=== PATIENT | female | born 1960 | race Caucasian/White ===

== ENCOUNTER 2025-07-04 12:51 | Outpatient (CLI) | payer OTHER ==
[~2025-07-04 12:51] MED LIST: Iopamidol 370 76% 100 ML VIAL ONE
[2025-07-04 14:56] LABS: Estimated GFR - POC 63.0
== END 2025-07-04 12:52 | disposition home or self-care (01) ==
LOC: CSHCT 12:51
PROVIDERS: ATTEND Radiology Radiation Oncology
DX: C34.02 Malignant neoplasm of left main bronchus (principal); C34.2 Malignant neoplasm of middle lobe, bronchus or lung; Z86.73 Personal history of transient ischemic attack (TIA), and cerebral infarction without residual deficits; Z86.79 Personal history of other diseases of the circulatory system; M19.09 Primary osteoarthritis, other specified site; J98.4 Other disorders of lung
CPT/HCPCS: 36415; 70470; 82565; 94060; 94664; 94726; 94729; 94760; Q9967

== ENCOUNTER 2025-07-17 10:42 | Outpatient (CLI) | payer OTHER ==
[2025-07-17 11:30] LABS: Hematocrit 37.0 % (34.9-44.5); Hemoglobin 11.9 g/dL (12.0-15.5); Mean Corpuscular Hemoglobin 29.4 pg (27.0-33.0); Mean Corpuscular Volume 91.4 fL (81.6-98.3); Platelet Count 361 10x3/uL (150-450); Red Blood Cell (RBC) Count 4.05 10x6/uL (3.90-5.03); White Blood Cell (WBC) Count 9.06 10x3/uL (3.5-10.5)
[2025-07-17 12:00] LABS: Anion Gap 15 mmol/L (10-20); BUN (Urea Nitrogen) 11 mg/dL (9.8-20.1); Calc. Creatinine Clearance 0 mL/min (70-130); Calcium 9.6 mg/dL (7.8-10.44); Carbon Dioxide 21 mmol/L (23-31); Chloride 106 mmol/L (98-107); Glucose 86 mg/dL (80-115); Potassium 4.1 mmol/L (3.5-5.1); Sodium 138 mmol/L (136-145)
== END 2025-07-17 10:43 | disposition home or self-care (01) ==
LOC: CSHLAB 10:42
PROVIDERS: ATTEND Surgery
DX: Z01.812 Encounter for preprocedural laboratory examination (principal); C34.12 Malignant neoplasm of upper lobe, left bronchus or lung
CPT/HCPCS: 80048; 85027

== ENCOUNTER → 2025-07-18 | Day surgery (SDC) | payer OTHER ==
[2025-07-17 10:59] VITALS: BMI 23.6
[~2025-07-18] MED LIST changes: +Bupivacaine HCl 0.5%/Epinephrine 1:200,000/PF 30 ml Vial ONE; +Bupivacaine/Epinephrine 0.25% 30 ML VIAL ONE; +CEFAZOLIN 2 GM VIAL ONE; -Iopamidol 370 76% 100 ML VIAL ONE; +PROPOFOL 0 ML ONE; +PROPOFOL 20 ML ONE; +Ropivacaine 0.5% HCl/PF (150 MG/30 ML VIAL) ONE
== END ==
LOC: CSHSDC 05:42
PROVIDERS: ATTEND Surgery
PROC: 05HM33Z Insertion of Infusion Device into Right Internal Jugular Vein, Percutaneous Approach (ICD-10-PCS; principal; 2025-07-18)
DX: C34.12 Malignant neoplasm of upper lobe, left bronchus or lung (principal); I10 Essential (primary) hypertension; Z79.899 Other long term (current) drug therapy; Z88.5 Allergy status to narcotic agent
CPT/HCPCS: 71045; A6258; C1788; J1642; J2704; J2795; J3010